=== PATIENT | male | born 1980 | race African-American/Black ===

== ENCOUNTER 2016-08-25 15:53 | Emergency (ER) | payer SELFPAY ==
[~2016-08-25] VITALS: Ht 175.3 cm; Wt 74.8 kg
[2016-08-25 15:56] VITALS: TEMP 37; Ht 175.3 cm; Wt 74.8 kg
[2016-08-25] MEDS ORDERED: IBUPROFEN 600 MG TAB PO STA (16:06)
[2016-08-25] MEDS ORDERED: ACETAMINOPHEN 500 MG TAB PO STA (16:06)
[2016-08-25 16:35] LABS: URINE APPEARANCE CLEAR (CLEAR); URINE BILIRUBIN NEG (NEG); URINE COLOR YELLOW; URINE NITRITE NEG (NEG); URINE SPECIFIC GRAVITY 1.008 (1.000-1.030); UROBILINOGEN NEG (NEG); ZZUR CULT IF INDIC CLEAN CATCH NO
--- NOTE | 2016-08-25 16:41 | DIAGNOSTIC IMAGING REPORT ---
L-SPINE MIN 4 VIEWS ROUTINE CLINICAL HISTORY: Right-sided back pain COMPARISON STUDY: No previous studies for comparison. FINDINGS: There are 5 lumbar type vertebral bodies. No fractures subluxations or destructive lesions are visualized. IMPRESSION: Unremarkable conventional radiographic evaluation the lumbar spine Electronically signed by: Tyrel Whipple M.D. 08/25/2016 4:40 PM Dictated Date/Time: 08/25/2016 4:39 PM
[2016-08-25 16:45] LABS: MANUAL MICROSCOPIC REQUIRED? NO; REVIEW REQ? NO
[2016-08-25] MEDS ORDERED: PRED20TA2 PO (17:40)
[2016-08-25] MEDS ORDERED: CYCL10TA6 PO (17:40)
[2016-08-25] MEDS ORDERED: ULT/50 PO (17:40)
[2016-08-25 18:00] VITALS: BP 128/84; PULSE 86; O2SAT 96
--- NOTE | 2016-08-25 18:54 | EMERGENCY ROOM VISIT NOTE ---
History First contact with patient: 15:59 Chief Complaint: BACK PAIN Stated Complaint: PROBLEMS WITH BACK History of Present Illness The patient is a 35 year old male who presents to the Emergency Room with complaints of right-sided low back pain off and on for the past 2 weeks. The patient does not recall a distinct injury or trauma. He states his discomfort does worsen with bending over. Over the past 2 days his symptoms have worsened , prompting his presentation to the emergency department. He has not been taking anything [id number] for his discomfort. He does not have a history of back issues in the past. He is without numbness or paresthesias. No difficulty using the bathroom, although he is concerned about a kidney stone or kidney infection. He has not had fever or chills. His pain does radiate down his leg at times. Review of Systems More than 10 systems were reviewed and otherwise negative with the exception of history of present illness. Past Medical/Surgical History No chronic medical disease Family History No pertinent family history Social History Smoking Status: Current Every Day Smoker Alcohol Use: none Drug Use: none Marital Status: Occupation Status: employed Current/Historical Medications Scheduled Cyclobenzaprine Hcl (Flexeril), 10 MG PO TID Prednisone (Prednisone Tab), 2 TAB PO DAILY Tramadol Hcl (Ultram), 50 MG PO Q8H Allergies Coded Allergies: No Known Allergies (Unverified , 08/21/15) Physical Exam Vital Signs Date Time Temp Pulse Resp B/P Pulse Ox O2 Delivery O2 Flow Rate FiO2 08/25/16 18:00 86 18 128/84 96 08/25/16 15:56 37.0 101 18 132/80 96 Room Air Physical Exam VITALS: Vitals are noted on the nurse's note and reviewed by myself. Vital signs stable. GENERAL: Well-developed, well-nourished, black male, who is in no acute distress and resting comfortably. Patient is cooperative with the examination. HEAD: Normocephalic atraumatic. NECK: Supple without nuchal rigidity. No lymphadenopathy. No thyromegaly. Cervical spine is nontender. HEART: Regular rate and rhythm without murmurs gallops or rubs. LUNGS: Clear to auscultation bilaterally without wheezes, rales or rhonchi. No retractions or accessory muscle use. ABDOMEN: Positive normal bowel sounds x 4. Soft, nontender, without masses or organomegaly. No guarding or rebound tenderness. MUSCULOSKELETAL: No muscle atrophy, erythema, or edema noted. Full range of motion without joint tenderness in all extremities. Mild tenderness appreciated over the right side SI joint. No CVA tenderness. No saddle paresthesias. Negative straight leg raise. NEURO: Patient was alert and oriented to person place and time. CN II through XII grossly intact. Deep tendon reflexes 2+ throughout. Medical Decision & Procedures ER Provider Diagnostic Interpretation: L-SPINE MIN 4 VIEWS ROUTINE CLINICAL HISTORY: Right-sided back pain COMPARISON STUDY: No previous studies for comparison. FINDINGS: There are 5 lumbar type vertebral bodies. No fractures subluxations or destructive lesions are visualized. IMPRESSION: Unremarkable conventional radiographic evaluation the lumbar spine Laboratory Results Test 08/25/16 16:10 Urine Color YELLOW Urine Appearance CLEAR (CLEAR) Urine pH 5.0 (4.5-7.5) Urine Specific [place] 1.008 (1.000-1.030) Urine Protein NEG (NEG) Urine Glucose (UA) NEG (NEG) Urine Ketones NEG (NEG) Urine Occult Blood NEG (NEG) Urine Nitrite NEG (NEG) Urine Bilirubin NEG (NEG) Urine Urobilinogen NEG (NEG) Urine Leukocyte Esterase NEG (NEG) Medications Administered Medications (Trade) Dose Ordered Sig/Gaurav Route Start Time Stop Time Status Last Admin Dose Admin Acetaminophen (Tylenol Tab) 1,000 mg NOW STAT PO 08/25/16 16:06 08/25/16 16:07 DC 08/25/16 16:12 1,000 MG Ibuprofen (Motrin Tab) 600 mg NOW STAT PO 08/25/16 16:06 08/25/16 16:07 DC 08/25/16 16:11 600 MG ED Course Physical exam and history were performed. Nursing notes and EMR were reviewed. Patient appears to have right-sided back pain for the past 2 weeks but is worse over the past 2 days. The patient certainly does not appear toxic. His symptoms are worse with certain position changes. Urine was collected and is without evidence of infection, blood, or other significant findings. Because of this I do not suspect kidney stone or kidney infection as the patient themselves is worried about. X-ray was performed and does not show acute process. I did provide the patient ibuprofen and Tylenol here in the department for pain control. Overall the patient's evaluation and workup today are unremarkable. I clinically suspect the patient's symptoms are related to musculoskeletal back pain. I will give him a short course of tramadol, Flexeril, and prednisone. He is to follow with his primary care physician for further management. He was otherwise invited back to the ER with any new, worsening, or concerning symptoms. The chart was completed utilizing [employer] Voice Recognition Software. Grammatical errors, random word insertions, pronoun errors, and incomplete sentences are an occasional consequence of this system due to software limitations, ambient noise, and hardware issues. Any formal questions or concerns about the content, text, or information contained within the body of this dictation should be directly addressed to the provider for clarification. . Medical Decision Differential diagnosis: Etiologies such as musculoskeletal, disc herniation, fracture, aortic disease, metastatic disease, cord compression, discitis, infection, renal colic, gastrointestinal, acute exacerbation of chronic back pain, sciatica, cauda equina, as well as others were entertained. Impression Primary Impression: Low back pain Departure Information Prescriptions Tramadol Hcl (ULTRAM) 50 Mg Tab 50 MG PO Q8H for 3 Days, #9 TAB Prov: Adolfo Puga PA-C 08/25/16 Prednisone (Prednisone Tab) 20 Mg Tab 2 TAB PO DAILY for 5 Days, #10 TAB Prov: Adolfo Puga PA-C 08/25/16 Cyclobenzaprine Hcl (FLEXERIL) 10 Mg Tab 10 MG PO TID for 5 Days, #15 TAB Prov: Adolfo Puga PA-C 08/25/16 Referrals No Doctor, Assigned (PCP) Patient Instructions My [facility]
== END 2016-08-25 18:05 | disposition home or self-care (01) ==
LOC: C.EDB 15:54 → C.EDC 18:05
DX: M54.5 Low back pain (principal); F17.210 Nicotine dependence, cigarettes, uncomplicated

== ENCOUNTER → 2016-09-26 | Outpatient (CLI) | payer OTHER | END | disposition home or self-care (01) | LOC: C.LAB 18:45 | DX: Z02.83 Encounter for blood-alcohol and blood-drug test (principal) ==